=== PATIENT | female | born 1975 | race Caucasian/White ===

== ENCOUNTER 2022-08-30 20:23 | Inpatient (IN) | payer SELFPAY ==
[2022-08-30] MEDS ORDERED: Ketorolac Tromethamine 30 MG/ML VIAL ONE (21:34)
[2022-08-30] MEDS ORDERED: Morphine 4 MG/ML VIAL ONE ×2 (21:34→23:04)
[2022-08-30] MEDS ORDERED: PROPOFOL 20 ML ONE (21:48)
[2022-08-30] MEDS ORDERED: Ipratropium/Albuterol 3 ML NEB NEB PRN (22:51)
[2022-08-30] MEDS ORDERED: traMADol HCl 50 MG TAB PO PRN ×2 (22:51)
[2022-08-30] MEDS ORDERED: Ondansetron PF 4 MG/2 ML Vial IVP PRN (22:51)
[2022-08-30] MEDS ORDERED: Dextrose 5% in Water 1,000 ML IV PRN (22:51)
[2022-08-30] MEDS ORDERED: Dextrose 50% Abboject 50 ML SYRINGE SLOW IVP PRN (22:51)
[2022-08-31] MEDS: Morphine 2 MG/ML VIAL SLOW IVP PRN ×2 (00:37→04:09)
[2022-08-31] MEDS: Acetaminophen 325 MG TAB PO SCH ×5 (00:37→23:45)
[2022-08-31 00:52] VITALS: BMI 27.4
[2022-08-31 05:22] LABS: #Basophils 0.1 thou/uL (0.0-0.2); #Eosinphils 0.3 thou/uL (0.0-0.7); #Monocytes 0.5 thou/uL (0.11-0.59); #Neutrophils 6.1 thou/uL (1.40-6.50); %Basophils 0.5 % (0.0-1.0); %Eosinophils 3.5 % (0.0-10.0); %Lymphocytes 23.9 % (21.0-51.0); %Monocytes 5.3 % (0.0-10.0); %Neutrophils 66.5 % (42.0-75.0); Hemoglobin 12.9 g/dL (12.0-16.0); Mean Corpuscular HGB CONC 31.2 g/dL (32.0-36.0); Mean Corpuscular Hemoglobin 30.5 pg (27.0-31.0); Mean Corpuscular Volume 97.6 fl (78.0-98.0); Mean Platelet Volume 10.3 fL (7.4-10.4); Platelet Count 192 10x3/uL (130-400); RBC Distribution Width 12.4 % (11.5-14.5); Red Blood Cell (RBC) Count 4.23 mill/uL (4.20-5.40); White Blood Cell (WBC) Count 9.2 10x3/uL (4.8-10.8)
[2022-08-31 05:38] LABS: Prothrombin Time 13.4 sec (12.0-14.7)
[2022-08-31 05:39] LABS: PTT 28.1 sec (22.9-36.1)
[2022-08-31 05:48] LABS: Anion Gap 10 mmol/L (10-20); BUN (Urea Nitrogen) 12 mg/dL (7.0-18.7); Calc. Creatinine Clearance 109 mL/min (70-130); Calcium 8.7 mg/dL (7.8-10.44); Carbon Dioxide 21 mmol/L (22-29); Chloride 111 mmol/L (98-107); Estimated GFR 98; Glucose 91 mg/dL (70-105); Potassium 3.8 mmol/L (3.5-5.1); Sodium 138 mmol/L (136-145)
[2022-08-31] MEDS ORDERED: Sodium Chloride 0.9% 1,000 ML IV SCH (06:15)
[2022-08-31] MEDS: Sodium Chloride 0.9% 1,000 ML IV SCH ×2 (08:13→15:18)
[2022-08-31] MEDS: Famotidine 20 MG TAB PO SCH ×2 (08:14→20:19)
[2022-08-31] MEDS ORDERED: Midazolam HCl 2 mg/2 ml Vial ONE ×2 (12:05→12:20)
[2022-08-31] MEDS ORDERED: fentaNYL PF 100 MCG/2 ML SYRINGE ONE (12:05)
[2022-08-31] MEDS ORDERED: PROPOFOL 200 MG/20 ML VIAL ONE (12:36)
[2022-08-31] MEDS ORDERED: Ondansetron PF 4 MG/2 ML Vial ONE (12:36)
[2022-08-31] MEDS ORDERED: Lidocaine 1% PF 5 ML VIAL ONE (12:36)
[2022-09-01] MEDS: Sodium Chloride 0.9% 1,000 ML IV SCH ×2 (00:28→08:28)
[2022-09-01] MEDS: Acetaminophen 325 MG TAB PO SCH ×2 (05:17→12:02)
[2022-09-01] MEDS: Famotidine 20 MG TAB PO SCH (08:27)
[2022-09-01 12:09] VITALS: BP 119/81; TEMP 98
== END 2022-09-01 12:45 | disposition home or self-care (01) | DRG 561 ==
LOC: ERS 20:23 → SJJU 22:55
PROVIDERS: ADMIT Surgery; ATTEND Surgery
PROC: 0QS6XZZ Reposition Right Upper Femur, External Approach (ICD-10-PCS; principal; 2022-08-31)
DX: T84.020A Dislocation of internal right hip prosthesis, initial encounter (principal); Z96.641 Presence of right artificial hip joint; W18.30XA Fall on same level, unspecified, initial encounter
CPT/HCPCS: 27250; 36415; 80048; 85025; 85610; 85730; 96374; 96375; 96376; 99152; 99156; J1885; J2250; J2270; J2272; J2405; J2704; J7050

== ENCOUNTER 2022-10-03 23:06 | Observation (INO) | payer SELFPAY ==
[2022-10-04] MEDS ORDERED: Ketamine 50 MG/ML (10ML VIAL) ONE (01:17)
[2022-10-04] MEDS ORDERED: Morphine 4 MG/ML VIAL SLOW IVP PRN (02:35)
[2022-10-04] MEDS ORDERED: Acetaminophen 325 MG TAB PO PRN (02:45)
[2022-10-04] MEDS ORDERED: Ondansetron ODT 4 MG TAB SL PRN (02:45)
[2022-10-04] MEDS ORDERED: Ondansetron PF 4 MG/2 ML Vial IVP PRN (02:45)
[2022-10-04] MEDS ORDERED: Morphine 4 MG/ML VIAL ONE (03:20)
[2022-10-04] MEDS ORDERED: Ondansetron PF 4 MG/2 ML Vial ONE ×2 (03:20→13:17)
[2022-10-04 03:58] VITALS: BMI 28.3
[2022-10-04] MEDS: Sodium Chloride 0.9% 1,000 ML IV SCH ×2 (04:13→08:54)
[2022-10-04 05:05] LABS: #Eosinphils 0.2 thou/uL (0.0-0.7); #Monocytes 0.5 thou/uL (0.11-0.59); #Neutrophils 8.9 thou/uL (1.40-6.50); %Basophils 0.4 % (0.0-1.0); %Eosinophils 2.1 % (0.0-10.0); %Monocytes 4.4 % (0.0-10.0); %Neutrophils 80.7 % (42.0-75.0); Hemoglobin 14.1 g/dL (12.0-16.0); Mean Corpuscular HGB CONC 33.3 g/dL (32.0-36.0); Mean Corpuscular Hemoglobin 31.6 pg (27.0-31.0); Mean Corpuscular Volume 94.8 fl (78.0-98.0); Platelet Count 186 10x3/uL (130-400); RBC Distribution Width 12.1 % (11.5-14.5); Red Blood Cell (RBC) Count 4.46 mill/uL (4.20-5.40)
[2022-10-04 05:53] LABS: ALT (SGPT) 13 U/L (8-55); AST (SGOT) 18 U/L (5-34); Albumin 3.9 g/dL (3.5-5.0); Alkaline Phosphatase 105 U/L (40-110); Anion Gap 15 mmol/L (10-20); BUN (Urea Nitrogen) 13 mg/dL (7.0-18.7); Bilirubin, Total 0.4 mg/dL (0.2-1.2); Calc. Creatinine Clearance 102 mL/min (70-130); Calcium 8.8 mg/dL (7.8-10.44); Carbon Dioxide 15 mmol/L (22-29); Chloride 112 mmol/L (98-107); Estimated GFR 87; Globulin 3.1 g/dL (2.4-3.5); Glucose 99 mg/dL (70-105); Potassium 4.3 mmol/L (3.5-5.1); Sodium 138 mmol/L (136-145)
[2022-10-04] MEDS ORDERED: CEFAZOLIN 2 GM in Sodium Chloride 0.9% 100 ML IVPB SCH (07:45)
[2022-10-04] MEDS ORDERED: fentaNYL 50 mcg/mL 1 mL Vial ONE ×3 (12:12→14:10)
[2022-10-04] MEDS ORDERED: Dexamethasone 20 MG/5 ML VIAL ONE (13:17)
[2022-10-04] MEDS ORDERED: Lidocaine 1% PF 5 ML VIAL ONE (13:17)
[2022-10-04] MEDS ORDERED: Rocuronium Bromide 10 MG/ML (10ML VIAL) ONE (13:17)
[2022-10-04] MEDS ORDERED: PROPOFOL 200 MG/20 ML VIAL ONE (13:17)
[2022-10-04] MEDS ORDERED: GLYCOPYRROLATE/PF 0.2 MG/ML VIAL ONE (13:17)
[2022-10-04] MEDS ORDERED: NEOSTIGMINE 3 MG/3 ML SYR 3 MG/3 ML SYRINGE ONE (13:17)
[2022-10-04] MEDS ORDERED: Promethazine HCl 25 MG/ML VIAL IM PRN (13:56)
[2022-10-04] MEDS ORDERED: Ondansetron HCl/PF 4 MG/2 ML Vial IVP PRN (13:56)
[2022-10-04] MEDS: traMADol HCl 50 MG TAB PO PRN (20:01)
[2022-10-05 08:16] VITALS: BP 109/71; TEMP 97.7
[2022-10-05] MEDS: traMADol HCl 50 MG TAB PO PRN (08:38)
== END 2022-10-05 11:30 | disposition home or self-care (01) ==
LOC: ERS 23:06 → SURG B 10-04 02:24
PROVIDERS: ADMIT Orthopaedic Surgery; ATTEND Orthopaedic Surgery
PROC: 0SW90JZ Revision of Synthetic Substitute in Right Hip Joint, Open Approach (ICD-10-PCS; principal; 2022-10-04)
DX: T84.020A Dislocation of internal right hip prosthesis, initial encounter (principal); Y79.2 Prosthetic and other implants, materials and accessory orthopedic devices associated with adverse incidents
CPT/HCPCS: 27266; 36415; 80053; 85025; 96374; 96375; 99152; 99153; G0378; J1100; J2270; J2405; J2704; J3010; J3490; J7050

== ENCOUNTER 2023-10-07 23:21 | Observation (INO) | payer OTHER ==
[2023-10-08] MEDS ORDERED: Acetaminophen 500 MG TAB PO PRN (01:04)
[2023-10-08 01:25] VITALS: BMI 29.1
[2023-10-08 09:37] LABS: #Basophils 0.04 10x3/uL (0.0-0.2); %Basophils 0.5 % (0.0-1.0); %Eosinophils 2.9 % (0.0-10.0); %Lymphocytes 25.2 % (21.0-51.0); %Monocytes 6.4 % (0.0-10.0); %Neutrophils 64.6 % (42.0-75.0); Hematocrit 39.8 % (36.0-47.0); Hemoglobin 13.4 g/dL (12.0-16.0); Mean Corpuscular HGB CONC 33.7 g/dL (32.0-36.0); Mean Corpuscular Hemoglobin 31.5 pg (27.0-31.0); Mean Corpuscular Volume 93.6 fL (78.0-98.0); Mean Platelet Volume 10.3 fL (7.4-10.4); Platelet Count 216 10x3/uL (130-400); RBC Distribution Width 12.7 % (11.5-14.5); Red Blood Cell (RBC) Count 4.25 mill/uL (4.20-5.40)
[2023-10-08 10:02] LABS: Anion Gap 13 mmol/L (10-20); BUN (Urea Nitrogen) 15 mg/dL (7.0-18.7); Calc. Creatinine Clearance 118 mL/min (70-130); Calcium 8.8 mg/dL (7.8-10.44); Carbon Dioxide 20 mmol/L (22-29); Chloride 111 mmol/L (98-107); Estimated GFR 100; Glucose 88 mg/dL (70-105); Potassium 3.7 mmol/L (3.5-5.1); Sodium 140 mmol/L (136-145)
[2023-10-08] MEDS ORDERED: Rocuronium Bromide 10 MG/ML (10ML VIAL) ONE (12:35)
[2023-10-08] MEDS ORDERED: PROPOFOL 20 ML ONE (12:35)
[2023-10-08] MEDS ORDERED: Lidocaine 1% PF 5 ML VIAL ONE (12:35)
[2023-10-08] MEDS ORDERED: fentaNYL PF 100 MCG/2 ML SYRINGE ONE (12:35)
[2023-10-08] MEDS ORDERED: Sodium Chloride 0.9% 100 ML ONE (12:35)
[2023-10-08] MEDS ORDERED: CEFAZOLIN 2 GM VIAL ONE (12:35)
[2023-10-08] MEDS ORDERED: SUGAMMADEX SODIUM 200 MG/2 ML VIAL ONE (13:00)
[2023-10-08] MEDS ORDERED: Ondansetron PF 4 MG/2 ML Vial ONE (13:09)
[2023-10-08] MEDS ORDERED: Ondansetron HCl/PF 4 MG/2 ML Vial IVP PRN (13:23)
[2023-10-08] MEDS ORDERED: Promethazine HCl 25 MG/ML VIAL IM PRN (13:23)
[2023-10-08] MEDS ORDERED: fentaNYL 50 mcg/mL 1 mL Vial ONE (14:10)
[2023-10-08 15:55] VITALS: BP 99/63; TEMP 97.9
[2023-10-08] MEDS: traMADol HCl 50 MG TAB PO PRN (17:22)
== END 2023-10-08 18:32 | disposition home or self-care (01) ==
LOC: SURG A 10-08 00:33
PROVIDERS: ADMIT Orthopaedic Surgery; ATTEND Orthopaedic Surgery
DX: S73.034A Other anterior dislocation of right hip, initial encounter (principal); F17.210 Nicotine dependence, cigarettes, uncomplicated; V89.2XXA Person injured in unspecified motor-vehicle accident, traffic, initial encounter
CPT/HCPCS: 36415; 80048; 85025; 86850; 86900; 86901; 94760; 96374; 96375; 96376; 99152; 99153; J2270; J2405; J2704; J3010; J3490